=== PATIENT | female | born 1980 | race Two or more races ===

== ENCOUNTER 2016-08-28 11:51 | Emergency (ER) | payer MEDICAID ==
[~2016-08-28] VITALS: Ht 154.9 cm; Wt 68.0 kg
--- NOTE | 2016-08-28 12:17 | NUR ---
PRESENTS SELF TO ED DT LOWER ABDOMINAL PAIN, 5/10, CRAMPS-LIKE. PATIENT IS AAO4, APPEARS IN NO APPARENT DISTRESS, RESPIRATION EVEN AND UNLABORED. SKIN IS WARM TO TOUCH AND NON DIAPHORETIC. PT IS AFEBRILE. DENIES HEMATURIA NOR DYSURIA.
--- NOTE | 2016-08-28 12:22 | NUR ---
URINE SAMPLE SENT TO LAB
[2016-08-28 12:49] LABS: APPEARANCE,URINE Cloudy (CLEAR); BILIRUBIN,URINE Negative (NEGATIVE); BLOOD, URINE Trace-intact Ery/uL (NEGATIVE); COLOR,URINE Yellow (YELLOW); KETONES,URINE Negative (NEGATIVE); LEUKOCYTE ESTERASE ,URINE Trace (NEGATIVE); NITRITE, URINE Negative (NEGATIVE); PREGNANCY TEST URINE QUAL NEGATIVE (NEGATIVE); PROTEIN,URINE Negative (NEGATIVE); UGLUCOSE Negative (NEGATIVE); UROBILINOGEN,URINE 0.2 EU/dL (0.2)
[2016-08-28 12:50] LABS: BACTERIA,URINE Few /HPF (None Seen)
[2016-08-28 12:51] LABS: SQUAMOUS EPITHELIAL CELL,UR Few /HPF (None Seen)
[2016-08-28] MEDS ORDERED: AZITHROMYCIN 250 MG TABLET ONE (12:55)
[2016-08-28] MEDS ORDERED: CEFTRIAXONE 500 MG VIAL ONE (12:56)
[2016-08-28] MEDS ORDERED: LIDOCAINE /MPF 1% VIAL 5 ML VIAL ONE (12:56)
[2016-08-28] MEDS ORDERED: CEFTRIAXONE 500 MG VIAL IM ONE (13:00)
[2016-08-28] MEDS ORDERED: AZITHROMYCIN 250 MG TABLET PO ONE (13:00)
--- NOTE | 2016-08-28 13:07 | NUR ---
PT MEDICATED ORDERED.
[2016-08-28 15:39] VITALS: BP 114/79
--- NOTE | 2016-08-28 15:40 | NUR ---
Patient discharged to home in stable condition. Written and verbal after care instructions given. Patient verbalizes understanding of instruction.
[2016-08-31 02:20] LABS: *NEISSERIA GONORRHOEAE NAA Negative (Negative); CHLAMYDIA TRACHOMATIS NAA Negative (Negative)
== END 2016-08-28 15:48 | disposition home or self-care (01) ==
LOC: ER 11:54
DX: N73.9 Female pelvic inflammatory disease, unspecified (principal); E11.9 Type 2 diabetes mellitus without complications; Z97.5 Presence of (intrauterine) contraceptive device
CPT/HCPCS: 76856-TC; 81000-TC; 82962-TC; 84703-TC; 87491; 87591; A4606; J0696; J3490; Z7610